=== PATIENT | female | born 1985 | race Hispanic/Latino ===

== ENCOUNTER 2023-02-16 10:31 | Emergency (ER) | payer BC ==
--- OUTSIDE RECORDS SUMMARY | 2023-02-16 10:33 | XMS REPORT | Continuity of Care Document ---
:1985 Author Organization [facility] t Address [address] [place] [address] [place] [id number] Care Team Providers Name Role Phone Donna Rico Attending Clinician Unavailable Kamryn_Reji Attending Clinician Unavailable Vanesa Dumont Attending Clinician Unavailable Donna Rico Admitting Clinician Unavailable L_Penisaura Admitting Clinician Unavailable Vanesa Dumont Admitting Clinician Unavailable Physician, No Primary or Family Admitting Clinician Unavaila ble Payers Payer Name Policy Type Policy Number Effective Date Expiration Date S varun [place] [id number] 2021 00:00:00 [place] ([place] Problems This patient has no known problems. Allergies, Adverse Reactions, Alerts Allergy Allergy Status Severity Reaction(s) Onset Inactive Treating Comm ents Source Name Type Date Date Clinician No Known DA Active U [facility] All[facility] 7 [facility]: [facility] 00 l [facility] No Known DA Active U 2016-03 [facility] Drug -15 [facility] 00:[facility]: [facility]ospita nces 00 [facility] No Known DA Active U NONE 2016-03 [facility] Drug 04-13 [facility] 00:00: Hospita nc 00 [facility] Social History Smoking Status Start Date Stop Date Source Never Smoker [facility] Medications Ordered Filled Start Stop Current Ordering Indication Dosage Frequency Signature Comments Components Source Medication Medication Date Date Medication? Clinician (SIG) Name Name Zithromax Zithromax No Zithromax Portal Z-Romeo 250 Z-Romeo 250 Z-Romeo 250 Communi mg tablet mg tablet mg tablet ty TAKE 2 TAKE 2 TAKE 2 Hospita TABLETS TABLETS TABLETS l (500 MG) BY (500 MG) BY (500 MG) Clinics ORAL ROUTE ORAL ROUTE BY ORAL ONCE DAILY ONCE DAILY ROUTE ONCE FOR 1 DAY FOR 1 DAY DAILY FOR THEN 1 THEN 1 1 DAY THEN TABLET (250 TABLET (250 1 TABLET MG) BY ORAL MG) BY ORAL (250 MG) ROUTE ONCE ROUTE ONCE BY ORAL DAILY FOR 4 DAILY FOR 4 ROUTE ONCE DAYS DAYS DAILY FOR 4 DAYS Vital Signs Vital Name Observation Time Observation Value Comments Source BP Diastolic 2022-12-10 00:00:00 76 mm[Hg] [facility] s BP Systolic 2022-12-10 00:00:00 114 mm[Hg] [facility] s Body Weight 2022-12-10 00:00:00 2540.8 [oz_av] [facility] s BMI (Body Mass 2022-12-10 00:00:00 24.9 kg/m2 [facility] s Height 2022-12-10 00:00:00 67 [in_i] [facility] s Procedures This patient has no known procedures. Plan of Care Planned Activity Planned Date Details Comments Source Diagnostic Test 2022-12-10 rapid SARS CoV 2 Ag, [facility] Pending 00:00:00 QL IA, respiratory Hospital Clinics specimen [code = rapid SARS CoV 2 Ag, QL [place], respiratory specimen] Diagnostic Test 2022-12-10 rapid flu (A+B) [facility] Pending 00:00:00 [code = rapid flu [facility] linics (A+B)] Diagnostic Test 2022-12-10 rapid strep group A, [facility] Pending 00:00:00 throat [code = rapid [facility] strep group A, throat] Instructions [facility] [place] s Encounters Start End Encounter Admission Attending Care Care Encounter Source Date/Time Date/Time Type Type Clinicians Facility Department ID 2021-10-15 Inpatient EM [place], [facility]01 [id number] [facility] 13:50:00 Donna [id number] [facility] 2023-02-10 2023-02-10 Outpatient L_Reji [facility] [id number] Portal 00:00:00 00:00:00 1114 Commun i ty [facility]osp[facility] 2023-01-06 2023-01-06 Outpatient L_Reji [facility] [id number] Portal 00:00:00 00:00:00 1010 Commun i ty Hospita l [facility] 2022-12-10 2022-12-10 Outpatient L_Reji [facility] [id number] Portal 00:00:00 00:00:00 0913 Commun i ty Hospita l [facility] 2022-12-10 2022-12-10 Shelly [facility] [place] - Portal 13 Portal 00:00:00 00:00:00 Ciera Mendoza APRN, MSN, [facility]: [address], CLINIC [address], [place] [address] , Ph. 2021-10-25 2021-10-26 Inpatient HUA Dumont [facility]01 [id number] [facility] 09:59:00 11:50:00 Vanesa 37 [facility] 2021-10-25 2021-10-26 Inpatient HUA Dumont [facility]01 [id number] [facility] 09:59:00 11:50:00 Vanesa [id number] [facility] 2021-10-15 2021-10-17 Inpatient KATELIN [facility] [id number] [facility] 13:50:00 09:27:00 Donna 99 [facility] 2021-10-17 2021-10-17 Inpatient UHA Rico [facility] [id number] [facility] 08:00:00 08:00:00 Donna 94 [facility] Results Test Description Test Time Test Comments Results Result Comments Source SURGICAL 2021-10-29 16:39:00 Test Item Value Reference Range Interpretation Commsisi nts SURGICAL RUN (test DATE: 10/29/21 [facility] PAGE 1 RUN TIME: 1639 Specimen Inquiry RUN USER: INTERFACE code = REBECA [place]CA[place]) NT: JOSE WASHBURN LOC: NETTE U #: [id number] AGE/SX: 36/F ROOM: [facility] RE10/25/21[facility] DR: Tiana Dumont MD : 86 BED: A DIS: 10/26/21 STATUS: DIS Victoriano TLOC: SPEC #: [id number] RECD: STATUS: SOUT REQ #: [id number] HEMANTH: 10/25/21-1638 [facility] DR: Vanesa Dumont MD ENTERED: SP TYPE: SURGICAL OTHR DR: Donna Rico MD ORDERED: ANATOMIC SPEC/6, SPEC TRACK, [id number], [id number] COPIES TO: Donna Rico MD [address] [facility] [address] [place] [address] [phone] Vanesa Dumont MD [address] [place] [address] [email or web address] PROCEDURES: [id number] (10/28/21-827) [id number] (10/29/21- 1519) TISSUES: A. PELVIC ADHESIONS - LEFT PELV IC SIDE WALL B. UTEROSACRAL LIGAMENT - LEFT UTEROSACRAL C. CUL-DE-SAC, PERITONEUM - RIG HT POSTERIOR CULDESAC D. PELVIC ADHESIONS - RIGHT PELVIC SIDE WALL E. UTEROSACRAL LIGAMENT - RIGHT UTEROSACRAL F. UTERUS - UTERUS, CERVIX FINAL DIAGNOSIS A. PELVIS, LEFT PELVIC SIDEWALL, BIOPSY : - Benign fibroconnective tissue B. PELVIS, LEFT UTEROSACRAL BIOPSY: - Benign fibroconnective tis onelia C. PELVIS, RIGHT POSTERIOR CUL-DE-SAC, BIOPSY: - Benign fibroadipose tissue D. PELVI S, RIGHT PELVIC SIDEWALL, BIOPSY: - Benign fibroadipose tissue E. PELVIS, RIGHT UTEROSACRAL, B IOPSY: - Benign fibroconnective tissue with focal chronic inflammation and vascular co ngestion F. UTERUS, HYSTERECTOMY: - Cervix with chronic inflammation and focal reactive parakeratosis CONTINUED ON NEXT PAGE RUN DATE: 10/29/21 [facility] PAGE 2 RUN TIME: 1639 Specimen Inquiry RUN USER: INTERFACE SPEC #: [id number] PATIENT: JOSE WASHBURN #[id number] (Continued) ------ FINAL DIAGNOSIS (Cont inued) - Secretory endometrium with benign polypoid foci up to 2 mm in length; Negative for atyp ia, negative for malignancy - Myometrium with no pathologic alteration - Specimen weight 167 g GROSS DESCRIPTION Specimen received in formalin in 6 parts each labeled with patient na me, MRN and date ofbirth.A. Specimen is labeled left pelvic sidewall. It consists of a 3.2 x 1.7 x 0.2 cmirregular soft collazo-rey tissue portion. Entirely submitted in cassette A1.B. Specimen is l abeled left uterosacral. It consists of a 1.6 x 1.3 x 0.2 cm soft collazo-rey tissue portion. Ent irely submitted in cassette B1.C. Specimen is labeled right posterior cul-de-sac. It consists of i s a 1.1 x 0.7 x0.2 cm soft collazo-rey tissue portion. Entirely submitted in cassette C1.D. Specimen is labeled right pelvic sidewall. It consists of a 2.4 x 1.9 x 0.2 cm softtan- rey membr anous tissue portion. Entirely submitted in cassette D1.E. Specimen is labeled right uterosacral . It consists of a 1.7 x 1.3 x 0.1 cm softtan-rey membranous tissue portion. Entirely submitted in cassette E1.F. Specimen is labeled uterus, cervix. It consists of a hysterectomy specimen [facility] 167g. Uterus measures 9.5 cm in length from fundus to distal most portion of exocervix, 6 .4cm in maximum cornu to cornu width and 4.6 cm anteroposteriorly. Serosa is purple tansmooth. Cervix is 3.1 cm in length and 3.6 cm in greatest diameter. Os is slit-like and1.1 cm across. Alex vaginalis is purple collazo smooth. Cervical canal has a collazo rugatedappearance. Endometri al cavity is 5.1 cm in length and 2.9 cm in maximum width. Endometrium is collazo-pink poly poid appearing and 0.1-0.3 cm in thickness. Myometrium istan-pink and up to 2.3 cm in thickness. R epresentative sections are submitted as follows: F1-F2 anterior and posterior cervix F3-F4 anter ior endomyometrium F5-F6 posterior endomyometrium AJ Technical component performed at [facility] ,[id number] , [place] [address] Unless gross only, the diagnosis is based upon micr oscopic examination.Immunohistochemistry: This test was developed and its performance characterist icsdetermined by this laboratory. It has not been approved nor does it need approval by [facility]. Appropriate positive and negative controls are reviewed and judged to beacceptable. This [facility] is certified under the Clinical Laboratory ImprovementAmendments (CLIA-88) as qualified to pe rform high complexity clinical laboratory testing. CLINICAL INFORMATION 10/25/21 1633/181 8, ANEMIA, DYSPAREUNIA, MENOMETRORRHAGIA, DISMENORRHEA CONTINUED ON NEXT PAGE RUN DATE: 10/29/21 [facility] PAGE 3 RUN TIME: 1639 Specimen Inquiry RUN USER: INTERFACE SPEC #: [id number] PATIENT: JOSE WASHBURN ABEL #[id number] (Continued) ------ Signed SIGNATURE ON TAWANNA SmithWendiekvng 10/29/21 1639 END OF REPORT CBC W/AUTO [id number] 05:40:00 Test Item Value Reference Range Interpretation Comments WHITE BLOOD CELL (test code = WBC) 8.8 K/mm3 6.5-12.3 RED BLOOD CELL (test code = RBC) 4.06 M/mm3 3.51-4.69 N HEMOGLOBIN (test code = HGB) 9.1 g/dL 10.1-13.8 L HEMATOCRIT (test code = HCT) 30.5 % 32.5-41.8 L MEAN CELL VOLUME (test code = MCV) 75.1 fL 84.6-96.6 L MEAN CELL HGB (test code = MCH) 22.4 pg 27.3-33.9 L MEAN CELL HGB CONCETRATION (test 29.8 gm/dL 32.0-34.2 L code = MCHC) RED CELL DISTRIBUTION WIDTH (test 20.6 % 12.2-16.3 H code = RDW) PLATELET COUNT (test code = PLT) 197 K/mm3 134-363 N MEAN PLATELET VOLUME (test code = 11.3 fL 9.2-12.7 N MPV) NEUTROPHIL % (test code = NT%) 84.5 % 57.9-77.3 H LYMPHOCYTE % (test code = LY%) 8.3 % 14.5-29.7 L MONOCYTE % (test code = MO%) 6.1 % 3.6-10.2 N EOSINOPHIL % (test code = EO%) 0.1 % 0.0-3.0 N BASOPHIL % (test code = BA%) 0.5 % 0.1-0.9 N NEUTROPHIL # (test code = NT#) 7.4 K/mm3 LYMPHOCYTE # (test code = LY#) 0.7 K/mm3 MONOCYTE # (test code = MO#) 0.5 K/mm3 EOSINOPHIL # (test code = EO#) 0.01 K/mm3 BASOPHIL # (test code = BA#) 0.0 K/mm3 RBC MORPHOLOGY REQUIRED (test code ABNORMAL NORMAL ANISO 1+ = RBCM) PLATELET MORPHOLOGY REQUIRED (test NORMAL NORMAL code = PLTMR) AG HEPATITIS B [id number] 12:53:00 Test Item Value Reference Range Interpretation Comments AG HEPATITIS B SURFACE (test code NONREACTIVE NONREACTIVE = HBSAG) AB HEPATITIS C [id number] 12:53:00 Test Item Value Reference Range Interpretation Comments AB HEPATITIS C (test code = NONREACTIVE NONREACTIVE HCVAB) SIGNAL TO CUTOFF (test code = 0.04 <0.80 N CUTOFF) AB HIV 1 12:53:00 Test Item Value Reference Range Interpretation Comments AB HIV 1 2 (test NONREACTIVE NONREACTIVE [facility] code = [id number]) 4th Gen HIV Ag/Ab Combo Screen HCG SERUM [id number] 12:07:00 Test Item Value Reference Range Interpretation Comments HCG SERUM QUAL (test code = HCGQL) NEGATIVE URINALYSIS [id number] 11:37:00 Test Item Value Reference Range Interpretation Comments UA COLOR (test code = COLU) COLORLESS YELLOW UA APPEARANCE (test code = CLEAR CLEAR APPU) UA GLUCOSE DIPSTICK (test code NEGATIVE NEG = DGLUU) UA BILIRUBIN DIPSTICK (test NEGATIVE NEG code = BILU) UA KETONE DIPSTICK (test code NEGATIVE NEG = KETU) UA SPECIFIC GRAVITY (test code 1.002 1.001-1.035 N = SGU) UA BLOOD DIPSTICK (test code = NEG NEG YARA) UA PH DIPSTICK (test code = 6.0 5-9 LUIS A) UA PROTEIN DIPSTICK (test code NEGATIVE NEG = PROU) UA UROBILINIOGEN DIPSTICK NEGATIVE mg/dL NEG (test code = URO) UA NITRITE DIPSTICK (test code NEG NEG = NOEMI) UA LEUKOCYTE ESTERASE DIPSTICK NEG NEG (test code = LEUU) UA WBC (test code = WBCU) 0-2 #/hpf NONE SEEN UA RBC (test code = RBCU) 0-2 #/hpf NONE SEEN UA EPITHELIAL CELLS (test code RARE #/HPF RARE-FEW = EPIU) UA BACTERIA (test code = BACU) RARE /HPF RARE-FEW URINE SAMPLE: CLEAN CATCHCOVID 19 Asymptomatic IH [id number] 11:33:00 Test Item Value Reference Range Interpretation Comments COVID 19 NEGATIVE NEGATIVE This test has b een Asymptomatic IH AG authorize d only for the (test code = detection ofpro teins from COVNONPUIAG) SARS-CoV-2, not for any other viruses orpathogens. Ne gative results should be treated as presumptive andconfirmed wi th a molecular assay , if necessary for patientmanageme nt. Negative result s do not rule out COVID- 19 andshould not b e used as the sole basis for treatment orpat ient management deci sions, including infec tion controldecision s. Negative result s should be considered i n thecontext of a patient's recent exposure s, history and thepresence of clinical signs and symptoms consis tent withCOVID-19. T his test has not been FD A cleared or approved; th e test hasbeen authori zed by FDA under an Emerge ncy Use Authorization(E UA) for use by laborato yvette certified under the CLIA thatmeet the re quirements to perform mode rate, high or waivedcomple xity tests. This anjali t is authorized for use at thePoint of Car e (POC), i.e., in patien t care settingsoperati ng under a CLIA Certificat e of Waiver, Certifi radha ofCompliance, o r Certificate of Accreditation. This test is only authori zed for the duration of thedeclaration that circumstances e xist justifying theauthorizatio n of emergency use o f in vitro diagnostic test sfor detection and/o r diagnosis of CO VID-19 under Xxsavym67 4(b)(1) of the Act, 21 U.S .C. 360bbb-3(b)(1), unless theauthorizatio n is terminated or r evoked sooner. CBC W/AUTO [id number] 11:22:00 Test Item Value Reference Range Interpretation Comments WHITE BLOOD CELL (test code = WBC) 6.1 K/mm3 6.5-12.3 L RED BLOOD CELL (test code = RBC) 4.56 M/mm3 3.51-4.69 N HEMOGLOBIN (test code = HGB) 10.3 g/dL 10.1-13.8 N HEMATOCRIT (test code = HCT) 33.7 % 32.5-41.8 N MEAN CELL VOLUME (test code = MCV) 73.9 fL 84.6-96.6 L MEAN CELL HGB (test code = MCH) 22.6 pg 27.3-33.9 L MEAN CELL HGB CONCETRATION (test 30.6 gm/dL 32.0-34.2 L code = MCHC) RED CELL DISTRIBUTION WIDTH (test 20.4 % 12.2-16.3 H code = RDW) PLATELET COUNT (test code = PLT) 209 K/mm3 134-363 N MEAN PLATELET VOLUME (test code = 11.3 fL 9.2-12.7 N MPV) NEUTROPHIL % (test code = NT%) 57.3 % 57.9-77.3 L LYMPHOCYTE % (test code = LY%) 29.5 % 14.5-29.7 N MONOCYTE % (test code = MO%) 7.3 % 3.6-10.2 N EOSINOPHIL % (test code = EO%) 4.7 % 0.0-3.0 H BASOPHIL % (test code = BA%) 0.7 % 0.1-0.9 N NEUTROPHIL # (test code = NT#) 3.5 K/mm3 LYMPHOCYTE # (test code = LY#) 1.8 K/mm3 MONOCYTE # (test code = MO#) 0.5 K/mm3 EOSINOPHIL # (test code = EO#) 0.29 K/mm3 BASOPHIL # (test code = BA#) 0.0 K/mm3 RBC MORPHOLOGY REQUIRED (test code NORMAL NORMAL = RBCM) PLATELET MORPHOLOGY REQUIRED (test NORMAL NORMAL code = PLTMR) CBC W/AUTO [id number] 13:50:00 Test Item Value Reference Range Interpretation Comments WHITE BLOOD CELL (test code = WBC) 4.9 K/mm3 6.5-12.3 L RED BLOOD CELL (test code = RBC) 4.06 M/mm3 3.51-4.69 N HEMOGLOBIN (test code = HGB) 8.9 g/dL 10.1-13.8 L HEMATOCRIT (test code = HCT) 29.7 % 32.5-41.8 L MEAN CELL VOLUME (test code = MCV) 73.2 fL 84.6-96.6 L MEAN CELL HGB (test code = MCH) 21.9 pg 27.3-33.9 L MEAN CELL HGB CONCETRATION (test 30.0 gm/dL 32.0-34.2 L code = MCHC) RED CELL DISTRIBUTION WIDTH (test 16.6 % 12.2-16.3 H code = RDW) PLATELET COUNT (test code = PLT) 251 K/mm3 134-363 N MEAN PLATELET VOLUME (test code = 10.7 fL 9.2-12.7 N MPV) NEUTROPHIL % (test code = NT%) 58.0 % 57.9-77.3 N LYMPHOCYTE % (test code = LY%) 29.0 % 14.5-29.7 N MONOCYTE % (test code = MO%) 6.3 % 3.6-10.2 N EOSINOPHIL % (test code = EO%) 5.9 % 0.0-3.0 H BASOPHIL % (test code = BA%) 0.6 % 0.1-0.9 N NEUTROPHIL # (test code = NT#) 2.8 K/mm3 LYMPHOCYTE # (test code = LY#) 1.4 K/mm3 MONOCYTE # (test code = MO#) 0.3 K/mm3 EOSINOPHIL # (test code = EO#) 0.29 K/mm3 BASOPHIL # (test code = BA#) 0.0 K/mm3 RBC MORPHOLOGY REQUIRED (test code NORMAL NORMAL = RBCM) PLATELET MORPHOLOGY REQUIRED (test NORMAL NORMAL code = PLTMR) CBC W/AUTO [id number] 01:51:00 Test Item Value Reference Range Interpretation Comments WHITE BLOOD CELL (test code = WBC) 5.3 K/mm3 6.5-12.3 L RED BLOOD CELL (test code = RBC) 3.79 M/mm3 3.51-4.69 N HEMOGLOBIN (test code = HGB) 8.3 g/dL 10.1-13.8 L HEMATOCRIT (test code = HCT) 27.7 % 32.5-41.8 L MEAN CELL VOLUME (test code = MCV) 73.1 fL 84.6-96.6 L MEAN CELL HGB (test code = MCH) 21.9 pg 27.3-33.9 L MEAN CELL HGB CONCETRATION (test 30.0 gm/dL 32.0-34.2 L code = MCHC) RED CELL DISTRIBUTION WIDTH (test 16.6 % 12.2-16.3 H code = RDW) PLATELET COUNT (test code = PLT) 236 K/mm3 134-363 N MEAN PLATELET VOLUME (test code = 10.8 fL 9.2-12.7 N MPV) NEUTROPHIL % (test code = NT%) 50.3 % 57.9-77.3 L LYMPHOCYTE % (test code = LY%) 36.5 % 14.5-29.7 H MONOCYTE % (test code = MO%) 6.4 % 3.6-10.2 N EOSINOPHIL % (test code = EO%) 6.2 % 0.0-3.0 H BASOPHIL % (test code = BA%) 0.4 % 0.1-0.9 N NEUTROPHIL # (test code = NT#) 2.7 K/mm3 LYMPHOCYTE # (test code = LY#) 2.0 K/mm3 MONOCYTE # (test code = MO#) 0.3 K/mm3 EOSINOPHIL # (test code = EO#) 0.33 K/mm3 BASOPHIL # (test code = BA#) 0.0 K/mm3 RBC MORPHOLOGY REQUIRED (test code NORMAL NORMAL = RBCM) PLATELET MORPHOLOGY REQUIRED (test NORMAL NORMAL code = PLTMR) COVID 19 Asymptomatic IH [id number] 16:20:00 Test Item Value Reference Range Interpretation Comments COVID 19 NEGATIVE NEGATIVE This test has b een Asymptomatic IH AG authorize d only for the (test code = detection ofpro teins from COVNONPUIAG) SARS-CoV-2, not for any other viruses orpathogens. Ne gative results should be treated as presumptive andconfirmed wi th a molecular assay , if necessary for patientmanageme nt. Negative result s do not rule out COVID- 19 andshould not b e used as the sole basis for treatment orpat ient management deci sions, including infec tion controldecision s. Negative result s should be considered i n thecontext of a patient's recent exposure s, history and thepresence of clinical signs and symptoms consis tent withCOVID-19. T his test has not been FD A cleared or approved; th e test hasbeen authori sina by FDA under an Emerge ncy Use Authorization(E UA) for use by laborato yvette certified under the CLIA thatmeet the re quirements to perform mode rate, high or waivedcomple xity tests. This anjali t is authorized for use at thePoint of Car e (POC), i.e., in patien t care settingsoperati ng under a CLIA Certificat e of Waiver, Certifi radha ofCompliance, o r Certificate of Accreditation. This test is only authori sina for the duration of thedeclaration that circumstances e xist justifying theauthorizatio n of emergency use o f in vitro diagnostic test sfor detection and/o r diagnosis of CO VID-19 under Jkvrizh81 4(b)(1) of the Act, 21 U.S .C. 360bbb-3(b)(1), unless theauthorizatio n is terminated or r evoked sooner. BASIC METABOLIC [id number] 16:02:00 Test Item Value Reference Range Interpretation Comments SODIUM (test code = NA) 137 mEq/L 135-145 N POTASSIUM (test code = K) 4.0 mEq/L 3.5-5.0 N CHLORIDE (test code = CL) 103 mEq/L 100-115 N CARBON DIOXIDE (test code = CO2) 27 mEq/L 22-31 N ANION GAP (test code = GAP) 10.60 10-20 N GLUCOSE (test code = GLU) 96 mg/dL 65-110 N BLOOD UREA NITROGEN (test code = 12 mg/dL 7-18 N BUN) GLOMERULAR FILTRATION RATE (test 71 ml/min >60 N code = GFR) CREATININE (test code = CREAT) 0.9 mg/dL 0.5-1.0 N CALCIUM (test code = CA) 8.9 mg/dL 8.4-10.2 N LIVER [id number] 16:02:00 Test Item Value Reference Range Interpretation Comments TOTAL PROTEIN (test code = PROT) 6.8 gm/dL 6.3-8.2 N ALBUMIN (test code = ALB) 4.0 gm/dL 3.4-4.8 N BILIRUBIN TOTAL (test code = BILT) 0.3 mg/dL 0.2-1.0 N BILIRUBIN DIRECT (test code = 0.1 mg/dL <0.2 N BILD) SGOT/AST (test code = AST) 13 units/L 15-37 L SGPT/ALT (test code = ALT) 11 units/L 12-78 L ALKALINE PHOSPHATASE TOTAL (test 56 units/L 46-116 N code = ALKP) CBC W/AUTO [id number] 15:41:00 Test Item Value Reference Range Interpretation Comments WHITE BLOOD CELL (test code = WBC) 5.5 K/mm3 6.5-12.3 L RED BLOOD CELL (test code = RBC) 3.81 M/mm3 3.51-4.69 N HEMOGLOBIN (test code = HGB) 8.0 g/dL 10.1-13.8 L HEMATOCRIT (test code = HCT) 27.5 % 32.5-41.8 L MEAN CELL VOLUME (test code = MCV) 72.2 fL 84.6-96.6 L MEAN CELL HGB (test code = MCH) 21.0 pg 27.3-33.9 L MEAN CELL HGB CONCETRATION (test 29.1 gm/dL 32.0-34.2 L code = MCHC) RED CELL DISTRIBUTION WIDTH (test 16.3 % 12.2-16.3 N code = RDW) PLATELET COUNT (test code = PLT) 260 K/mm3 134-363 N MEAN PLATELET VOLUME (test code = 11.0 fL 9.2-12.7 N MPV) NEUTROPHIL % (test code = NT%) 59.3 % 57.9-77.3 N LYMPHOCYTE % (test code = LY%) 26.7 % 14.5-29.7 N MONOCYTE % (test code = MO%) 7.0 % 3.6-10.2 N EOSINOPHIL % (test code = EO%) 6.2 % 0.0-3.0 H BASOPHIL % (test code = BA%) 0.4 % 0.1-0.9 N NEUTROPHIL # (test code = NT#) 3.2 K/mm3 LYMPHOCYTE # (test code = LY#) 1.5 K/mm3 MONOCYTE # (test code = MO#) 0.4 K/mm3 EOSINOPHIL # (test code = EO#) 0.34 K/mm3 BASOPHIL # (test code = BA#) 0.0 K/mm3 RBC MORPHOLOGY REQUIRED (test code NORMAL NORMAL = RBCM) PLATELET MORPHOLOGY REQUIRED (test NORMAL NORMAL code = PLTMR) UA RFLX MICR CULT IF [id number] 14:33:00 Test Item Value Reference Range Interpretation Comments UA COLOR (test code = COLU) YELLOW YELLOW UA APPEARANCE (test code = CLEAR CLEAR APPU) UA GLUCOSE DIPSTICK (test code NEGATIVE NEG = DGLUU) UA BILIRUBIN DIPSTICK (test NEGATIVE NEG code = BILU) UA KETONE DIPSTICK (test code NEGATIVE NEG = KETU) UA SPECIFIC GRAVITY (test code 1.009 1.001-1.035 N = SGU) UA BLOOD DIPSTICK (test code = NEG NEG YARA) UA PH DIPSTICK (test code = 7.0 5-9 LUIS A) UA PROTEIN DIPSTICK (test code NEGATIVE NEG = PROU) UA UROBILINIOGEN DIPSTICK NEGATIVE mg/dL NEG (test code = URO) UA NITRITE DIPSTICK (test code NEG NEG = NOEMI) UA LEUKOCYTE ESTERASE DIPSTICK NEG NEG (test code = LEUU) UA WBC (test code = WBCU) 0-2 #/hpf NONE SEEN UA RBC (test code = RBCU) 0-2 #/hpf NONE SEEN UA EPITHELIAL CELLS (test code RARE #/HPF RARE-FEW = EPIU) UA BACTERIA (test code = BACU) RARE /HPF RARE-FEW UA MUCUS (test code = MUCU) RARE NONE SEEN Indication for culture: Suprapubic PainSpecimen Description: CLEAN CATCH- DUP AB/PEL/SC/[id number] 00:00:00 [facility] : 1985 Sex: F Patient Name: JOSE WASHBURN Unit No: [id number] EXAMS: CPT CODE: [id number] DUP AB/PEL/SC/LTD [id number] PROCEDURE INFORMATION: Exam: US Pelvis Complete (Transabdominal), Pelvis (Transvaginal), and US Duplex Artery or Vein (Ovaries) Limited Exam date and time: 10/15/2021 2:07 PM Age: 36 years old Clinical indication: Abdominal or pelvic symptoms: Aub; Menstruation abnormalities; Excessive menstruation; With regular cycle; Prior surgery; Surgery date: 6+ months; Surgery type: C/s x2; Additional info: Pelvic pain TECHNIQUE: Imaging protocol: Real-time transabdominal and transvaginal pelvic ultrasound (complete) with image documentation. Transvaginal imaging was used for better evaluation of the endometrium, adnexa, and/or cervix. Real-time duplex ultrasound scan of the arterial or venous flow of the ovaries with B-mode, color Doppler flow and spectral waveform analysis. Complete Pelvis, Limited Duplex. COMPARISON: OT US TRANSVAGINAL W/PELVIS 02/13/2017 12:38 PM FINDINGS: Uterus: Heterogeneous uterus measuring 10.9 x 5.6 x 6.9 cm. Endometrial stripe is normal and measures 6 mm in thickness. Right ovary/adnexa: The right ovary measures 4.2 x 3.6 x 3.1 cm. There is 2.5 x 2.2 x 1.9 cm anechoic simple follicular cyst in the right ovary . Normal duplex of the ovary. Normal Doppler waveforms and color flow. Left ovary/adnexa: The left ovary measures 2.4 x 1.4 x 1.5 cm on transabdominal examination. Normal duplex of the ovary. Normal Doppler waveforms and color flow. Intraperitoneal space: No intraperitoneal fluid. Urinary bladder: Visualized bladder is unremarkable. IMPRESSION: 1. Heterogeneous bulky uterus. 2. 2.5 x 2.2 x 1.9 cm follicular cyst in the right ovary.No follow-up is needed. (Reference: Silvia, 2019) References: Silvia Felder, et al. Simple Adnexal Cysts: SRU Consensus Conference Update on Follow-up and Reporting. Radiology. 2019;293(2):359-371. 3. No ovarian torsion. at 1531 Reported and signed by: Roz Rogers MD [facility] NAME: JOSE WASHBURN Radiology Department PHYS: . - Rosemary Mccrary [address] : 1985 AGE: 36 SEX: F [place] [address] LOC: DianaERS PHONE #: [phone] EXAM DATE: 10/15/2021 STATUS: REG ER FAX #: [phone] RAD NO: Page 1 Signed Report (CONTINUED) Patient Name: JOSE WASHBURN Unit No: [id number] EXAMS: CPT CODE: [id number] DUP AB/PEL/SC/LTD 95819 (Continued) CC: Rosemary Mccrary MD Technologist: Meghan Perdomo, RDMSProbe: Trnscrbd D/ (153) GCD.CPS Orig Print D/T: S: 10/15/2021 (153) [facility] [place] [facility] NAME: JOSE WASHBURN Radiology Department PHYS: . Rosemary Mccrary [address] : 1985 AGE: 36 SEX: F [place] [address] LOC: DianaERS PHONE #: [phone] EXAM DATE: 10/15/2021 STATUS: REG ER FAX #: [phone] RAD NO: Page 2 Signed Report Patient Name: JOSE WASHBURN Unit No: [id number] EXAMS: CPT CODE: [id number] DUP AB/PEL/SC/LTD 63727(Continued) [facility] NAME: JOSE WASHBURN Radiology Department PHYS: NICOLETTEBERNADETTE.Hugo Rosemary Mccrary [place] [address] : 1985 AGE: 36 SEX: F [place], [place] [address] LOC: CAROLE PHONE #: [phone] EXAM DATE: 10/15/2021 STATUS: REG ER FAX #: [phone] NO: Page 3 Signed Report - US TRANSVAGINAL [id number] 00:00:00 [facility] 1985 Sex: F Patient Name: JOSE WASHBURN Unit No: [id number] EXAMS: CPT CODE: [id number] US TRANSVAGINAL W/PELVIS 13682 PROCEDURE INFORMATION: Exam: US Pelvis Complete (Transabdominal), Pelvis (Transvaginal), and US Duplex Artery or Vein (Ovaries) Limited Exam date and time: 10/15/2021 2:07 PM Age: 36 years old Clinical indication: Abdominal or pelvic symptoms: Aub; Menstruation abnormalities; Excessive menstruation; With regular cycle; Prior surgery; Surgery date: 6+ months; Surgery type: C/s x2; Additional info: Pelvic pain TECHNIQUE: Imaging protocol: Real-time transabdominal and transvaginal pelvic ultrasound (complete) with image documentation. Transvaginal imaging was used for better evaluation of the endometrium, adnexa, and/or cervix. Real-time duplex ultrasound scan of the arterial or venous flow of the ovaries with B-mode, color Doppler flow and spectral waveform analysis. Complete Pelvis, Limited Duplex. COMPARISON: OT US TRANSVAGINAL W/PELVIS 02/13/2017 12:38 PM FINDINGS: Uterus: Heterogeneousuterus measuring 10.9 x 5.6 x 6.9 cm. Endometrial stripe is normal and measures 6 mm in thickness. Right ovary/adnexa: The right ovary measures 4.2 x 3.6 x 3.1 cm. There is 2.5 x 2.2 x 1.9 cm anechoicsimple follicular cyst in the right ovary . Normal duplex of the ovary. Normal Doppler waveforms andcolor flow. Left ovary/adnexa: The left ovary measures 2.4 x 1.4 x 1.5 cm on transabdominal examination. Normal duplex of the ovary. Normal Doppler waveforms and color flow. Intraperitoneal space: No intraperitoneal fluid. Urinary bladder: Visualized bladder is unremarkable. IMPRESSION: 1. Heterogeneous bulky uterus. 2. 2.5 x 2.2 x 1.9 cm follicular cyst in the right ovary.No follow-up is needed. (Reference: Silvia, 2019) References: Silvia Felder, et al. Simple Adnexal Cysts: SRU Consensus Conference Update on Follow-up and Reporting. Radiology. 2019;293(2):359-371. 3. No ovarian torsion. at 1531 Reported and signed by: Roz Rogers MD [facility] NAME: WASHBURNJOSEYOSHI ROMAN Radiology Department PHYS: TYREE. - Rosemary Mccrary [address] : 1985 AGE: 36 SEX: F [place], [place] [address] LOC: CAROLE PHONE #: [phone] EXAM DATE: 10/15/2021 STATUS: REG ER FAX #: [phone] RAD NO: Page 1 Signed Report (CONTINUED) Patient Name: JOSE WASHBURN Unit No: [id number] EXAMS: CPT CODE: [id number] US TRANSVAGINAL W/PELVIS 90318 (Continued) CC: Rosemary Mccrary MD Technologist: Meghan Perdomo, RDMS Probe: [id number] Trnscrbd D/ (1531) GCD.CPS Orig Print D/T: S: 10/15/2021 (1531) [facility] NAME: JOSE WASHBURN Radiology Department PHYS: PETCA. - Rosemary Mccrary [address] : 1985 AGE: 36 SEX: F [place], [place] [address] LOC: [place].ERS PHONE #: [phone] EXAM DATE: 10/15/2021 STATUS: REG ER FAX #: [phone] RADNO: Page 2 Signed Report Patient Name: JOSE WASHBURN Unit No: [id number] EXAMS: CPT CODE: [id number] US TRANSVAGINAL W/PELVIS 88176 (Continued) [facility] NAME: JOSE WASHBURN ABEL Radiology Department PHYS: PETCA. - Rosemary Mccrary [address] : 1985 AGE: 36 SEX: F [place], [place] [address] LOC: F.ERS PHONE #: [phone] EXAM DATE: 10/15/2021 STATUS: REG ER FAX #: [phone] RAD NO: Page 3 Signed Report- US PELVIS [id number] 00:00:00 [facility] : 1985 Sex: F Patient Name: JOSE WASHBURN Unit No: [id number] EXAMS: CPT CODE: [id number] US PELVIS COMPLETE 39632 PROCEDURE INFORMATION: Exam: US Pelvis Complete (Transabdominal), Pelvis (Transvaginal), and US Duplex Artery or Vein (Ovaries) Limited Exam date and time: 10/15/2021 2:07 PM Age: 36 years old Clinical indication: Abdominal or pelvic symptoms: Aub; Menstruation abnormalities; Excessive menstruation; With regular cycle; Prior surgery; Surgery date: 6+ months; Surgery type: C/s x2; Additional info: Pelvic pain TECHNIQUE: Imaging protocol: Real-time transabdominal and transvaginal pelvic ultrasound (complete) with image documentation. Transvaginal imaging was used for better evaluation of the endometrium, adnexa, and/or cervix. Real-time duplex ultrasound scan of the arterial or venous flow of the ovaries with B-mode, color Doppler flow and spectral waveform analysis. Complete Pelvis, Limited Duplex. COMPARISON: OT US TRANSVAGINAL W/PELVIS 02/13/2017 12:38 PM FINDINGS: Uterus: Heterogeneous uterus measuring 10.9 x 5.6 x 6.9 cm. Endometrial stripe is normal and measures 6 mm in thickness. Right ovary/adnexa: The right ovary measures 4.2 x 3.6 x 3.1 cm. There is 2.5 x 2.2 x 1.9 cm anechoic simplefollicular cyst in the right ovary . Normal duplex of the ovary. Normal Doppler waveforms and color flow. Left ovary/adnexa: The left ovary measures 2.4 x 1.4 x 1.5 cm on transabdominal examination. Normal duplex of the ovary. Normal Doppler waveforms and color flow. Intraperitoneal space: No intraperitoneal fluid. Urinary bladder: Visualized bladder is unremarkable. IMPRESSION: 1. Heterogeneous bulky uterus. 2. 2.5 x 2.2 x 1.9 cm follicular cyst in the right ovary.No follow-up is needed. (Reference: Silvia, 2019) References: Silvia Felder, et al. Simple Adnexal Cysts: SRU Consensus Conference Update onFollow-up and Reporting. Radiology. 2019;293(2):359-371. 3. No ovarian torsion. at 1531 Reported and signed by: Roz Rogers MD [facility] NAME: JOSE WASHBURN Radiology Department PHYS: PETCA.01 - DemetraRosemary serrano [address] : 1985 AGE: 36 SEX: F [place] [address] LOC: DianaERS PHONE #: [phone] EXAM DATE: 10/15/2021 STATUS: REG ER FAX #: [phone] RAD NO: Page 1 Signed Report (CONTINUED) Patient Name: JOSE WASHBURN Unit No: [id number] EXAMS: CPT CODE: [id number] PELVIS COMPLETE 00162 (Continued) CC: Rosemary Mccrary MD Technologist: Meghan Perdomo RDMS Probe: Trnscrbd D/ (1531) GCD.CPS Orig Print D/T: S: 10/15/2021 (1531) [facility] [place] [facility] NAME: JOSE WASHBURN Radiology Department PHYS: PETCA.01 - DemetraRosemary serrano [address] : 1985 AGE: 36 SEX: F [place] [address] LOC: DianaERS PHONE #: [phone] EXAM DATE: 10/15/2021 STATUS: REG ER FAX #: [phone] RAD NO: Page 2 Signed ReportPatient Name: JOSE WASHBURN Unit No: [id number] EXAMS: CPT CODE: [id number] US PELVIS COMPLETE 41950 (Continued) [facility] [place] [facility] NAME: JOSE WASHBURN Radiology Department PHYS: PETCA.01 - Demetra,Rosemary D [address] : 1985 AGE: 36 SEX: F [place] [address] LOC: DianaERS PHONE #: [phone] EXAM DATE: 10/15/2021 STATUS: REG ER FAX #: [phone] RAD NO: Page 3 Signed ReportFALLOPIAN TUBE,[id number] 16:30:00 RUN DATE: 01/17/19 [facility] PAGE 1 RUN TIME: 1710 Specimen Inquiry RUN USER: INTERFACE -PATIENT: JOSE WASHBURN ABEL LOC: LOPEZ U #: [id number] AGE/SX: 33/F ROOM: [facility] RE01/13/19REG DR: Donna Rico MD : [birth year] BED: A DIS: 01/16/19 STATUS: DIS IN TLOC: SPEC #: [id number] RECD: 01/14/19 STATUS: FADUMO BIRCH #: [id number] HEMANTH: 01/14/19- SUBM DR: Donna Rico MD ENTERED: 01/14/19 SP TYPE: FALLST JERONIMO DR: Marguerite Nicole MD ORDERED: LEVEL II SURGIC/2 CODES: A47192 - FALLOPIAN TUBE COPIES TO: Marguerite Nicole MD [address] [facility] [facility] [place] [address] Jwqcsy,Jonna C MD [address] [facility] [place] [address] PROCEDURES: LEVEL II SURGIC (Incomplete) TISSUES: FALLOPIAN TUBE, NOS - BILATERAL FALLOPIAN TUBES CLINICAL HISTORY 33 year old, IUP @ 38.6 weeks, , repeat section (kr) FINAL DIAGNOSIS Right fallopian tube, sterilization salpingectomy: - completely transected unremarkable fallopian tube Left fallopian tube, sterilization salpingectomy: - completely transected fallopian tube with benign paratubal cyst CPT code(s): 66615 x2 [facility] 01/17/19 GROSS DESCRIPTION ANATOMIC SOURCE OF TISSUE (per Requisition): Bilateral fall opian tubes Each specimen is labeled with the patient's name and medical record number. CONTINUED ON NEXT PAGE RUN DATE: 01/17/19 [facility] PAGE 2 RUN TIME: 1710 Specimen Inquiry RUN USER: INTERFACE SPEC #: [id number] PATIENT: JOSE WASHBURN #[id number] (Continued) GROSS DESCRIPTION (Continued) Specimen #1 is designated "right" and consists of a segment of 5 x 0.7 x 0.7 cm fallopian tube with fimbriaand paratubal yellow tissue measuring up to 0.7 cm. The entire fimbria and one cross-section of fallo pian tube with the cyst are submitted and labeled A1. Specimen #2 is designated "left" and consists of a segment of 6 x 0.6 x 0.5 cm fallopian tube with fimbria and a parafimbrial cyst attached measuring up to 0.7 cm. The entire fimbria with the cyst and one cross-section of fallopian tube are submitted and labeled B1. pebbles 01/14/19 @ 0907 Signed Brenna Ralph MD 01/17/19 1630 END OF REPORT CBC W/AUTO [id number] 07:56:00 Test Item Value Reference Range Interpretation Comments WHITE BLOOD CELL (test code = WBC) 7.6 K/mm3 6.6-12.1 N RED BLOOD CELL (test code = RBC) 3.06 M/mm3 3.45-5.01 L HEMOGLOBIN (test code = HGB) 8.9 g/dL 10.7-13.9 L HEMATOCRIT (test code = HCT) 27.6 % 32.1-42.1 L MEAN CELL VOLUME (test code = MCV) 90 fL 84.1-94.8 N MEAN CELL HGB (test code = MCH) 29.1 pg 27-35 N MEAN CELL HGB CONCETRATION (test 32.2 gm/dL 32.2-34.1 N code = MCHC) RED CELL DISTRIBUTION WIDTH (test 14.4 % 12.4-16.5 N code = RDW) PLATELET COUNT (test code = PLT) 139 K/mm3 133-385 N IMMATURE PLATELET FRACTION (test 0.0 % 0.0-10.8 N code = IPF) MEAN PLATELET VOLUME (test code = 11.5 fl 9.1-12.7 N MPV) NEUTROPHIL % (test code = NT%) 60.1 % 56.5-79.4 N LYMPHOCYTE % (test code = LY%) 26.7 % 14.3-34.3 N MONOCYTE % (test code = MO%) 9.9 % 5.1-10.4 N EOSINOPHIL % (test code = EO%) 2.5 % 0.1-3.0 N BASOPHIL % (test code = BA%) 0.3 % 0.1-1.0 N NEUTROPHIL # (test code = NT#) 4.6 K/mm3 LYMPHOCYTE # (test code = LY#) 2.0 K/mm3 MONOCYTE # (test code = MO#) 0.8 K/mm3 EOSINOPHIL # (test code = EO#) 0.19 K/mm3 BASOPHIL # (test code = BA#) 0.0 K/mm3 RBC MORPHOLOGY REQUIRED (test code NORMAL NORMAL = RBCM) PLATELET MORPHOLOGY REQUIRED (test NORMAL NORMAL code = PLTMR) AG HEPATITIS B [id number] 18:54:00 Test Item Value Reference Range Interpretation Comments AG HEPATITIS B SURFACE (test code NONREACTIVE NONREACTIVE = HBSAG) Comments to Crate Icer: LDO BIS CONSENT FORM SIGNED FOR HIV TESTING? YAB HEPATITIS C [id number] 18:54:00 Test Item Value Reference Range Interpretation Comments AB HEPATITIS C (test code = NONREACTIVE NONREACTIVE HCVAB) SIGNAL TO CUTOFF (test code = 0.13 <0.80 N CUTOFF) Comments to Crate Icer: LDO BIS CONSENT FORM SIGNED FOR HIV TESTING? YAB [id number] 18:54:00 Test Item Value Reference Range Interpretation Comments AB TREPONEMA (test code = TREPAB) NONREACTIVE NONREACTIVE Comments to Crate Icer: LDO BIS CONSENT FORM SIGNED FOR HIV TESTING? YAB HIV 1 18:54:00 Test Item Value Reference Range Interpretation Comments AB HIV 1 2 (test NONREACTIVE NONREACTIVE [facility] code = AXG66EV) 4th Gen HIV Ag/Ab Combo Screen Comments to Crate Icer: LDO BIS CONSENT FORM SIGNED FOR HIV TESTING? YCBC W/AUTO [id number] 16:14:00 Test Item Value Reference Range Interpretation Comments WHITE BLOOD CELL (test code = WBC) 7.4 K/mm3 6.6-12.1 N RED BLOOD CELL (test code = RBC) 3.61 M/mm3 3.45-5.01 N HEMOGLOBIN (test code = HGB) 10.8 g/dL 10.7-13.9 N HEMATOCRIT (test code = HCT) 32.7 % 32.1-42.1 N MEAN CELL VOLUME (test code = MCV) 91 fL 84.1-94.8 N MEAN CELL HGB (test code = MCH) 29.9 pg 27-35 N MEAN CELL HGB CONCETRATION (test 33.0 gm/dL 32.2-34.1 N code = MCHC) RED CELL DISTRIBUTION WIDTH (test 14.2 % 12.4-16.5 N code = RDW) PLATELET COUNT (test code = PLT) 159 K/mm3 133-385 N IMMATURE PLATELET FRACTION (test 0.0 % 0.0-10.8 N code = IPF) MEAN PLATELET VOLUME (test code = 12.2 fl 9.1-12.7 N MPV) NEUTROPHIL % (test code = NT%) 68.8 % 56.5-79.4 N LYMPHOCYTE % (test code = LY%) 21.2 % 14.3-34.3 N MONOCYTE % (test code = MO%) 7.9 % 5.1-10.4 N EOSINOPHIL % (test code = EO%) 1.1 % 0.1-3.0 N BASOPHIL % (test code = BA%) 0.3 % 0.1-1.0 N NEUTROPHIL # (test code = NT#) 5.1 K/mm3 LYMPHOCYTE # (test code = LY#) 1.6 K/mm3 MONOCYTE # (test code = MO#) 0.6 K/mm3 EOSINOPHIL # (test code = EO#) 0.08 K/mm3 BASOPHIL # (test code = BA#) 0.0 K/mm3 RBC MORPHOLOGY REQUIRED (test code NORMAL NORMAL = RBCM) PLATELET MORPHOLOGY REQUIRED (test NORMAL NORMAL code = PLTMR) - US PREG UT [id number] 08:46:00 Patient Name: JOSE WASHBURN Unit No: [id number] EXAMS: CPT CODE: [id number] US PREG UT TRANSVAGINAL [address] [facility] [address], [place] [address] LIMITED OBSTETRICAL ULTRASOUND REPORT Pat. Name: JOSE WASHBURN Pat. No: [id number] Study Date: 11/30/2018 7:37am , Age: 02 1985, 33 Pregnancies: 3, Para 2 LMP: Unknown GA by 1st: 32w3d GA by US: 32w1d GA Selected: 32w3d (From First S) [place]: 01/22/2019 Referring MD: Leatha Shabazz Mud Analysis Well Logging Operator: Cyn Cortes RDMS CPT4: USPRUTTRVG Admitting MD: Leatha Shabazz Hist/Ind: PYELECTASIS SCAN 2 MEASUREMENTS AGE GROWTH EVALUATION Measurement GA Range Srce%for GA Ratios ----- ---- ------- BPD 7.9 cm 32w0d (50p3s-66a4e) Hadl BPD 44% FL/BPD 0.78 (0.71 - 0.87) HC 30.2 cm 33w0d (88l0u-57y9t) Hadl HC 60% FL/AC 0.22 (0.20 - 0.24) APD 8.8 cm APD HC/AC 1.07 (0.95 - 1.14) TAD 9.1 cm TAD CI 0.74 (0.70 - 0.86) AC 28.1 cm 32w1d (29w1d- 35w1d) Hadl AC 47% FL 6.2 cm 31w6d (31t1j-74w3e) Hadl FL 41% HL 5.7 cm 33w0d (3 9a4n-59r7v) Pa HL 61% GA for sonogram 32w1d (65i6u-24h2w) Weight Estimate: based on (BPD,HC,AC,FL) Hadlock Weight: 1933 gm (3659-2214) Hadlo : 4lbs, 4oz Normal: 1896 gm (0112-4058) Brenn Wt% 52% for 32.4 wks Cervical Length: 6.0 cm Heart Rate: 137 bpm Amniotic Fluid Index: 14.8cm (08.5-2 4.3) Q1: 3.3cm Q2: 3.0cm Q3: 3.5cm Q4: 4.9cm CLINICAL SUMMARY Type of Gestation: Langley Intrauterine in vertex present ation. size is appropriate for gestational age. growth: Consistent with normal growth motion and organs seen: heart motion seen body and limb movements seen RENAL PELVES ARE MILDLY PROMINENT. RT MEASURES 5MM AND LT MEASURES 6MM. Placental location: [facility] NAME: JOSE WASHBURN Radiology Department PHYS: Leatha Mota [address] : 1985 AGE: 33 SEX: F [place] [address] LOC: DianaRAD PHONE#: [phone] EXAM DATE: 11/30/2018 STATUS: PRE CLI FAX #: [phone] RAD NO: Page 1 Signed Report (CONTINUED) Patient Name: JOSE WASHBURN Unit No: [id number] EXAMS: CPT CODE: [id number] US PREG UT TRANSVAGINAL 44755 (Continued) Fundal Right lateral Placental maturity : Grade 2 There is no evidence of placenta previa. Amniotic fluid volume is normal. Uterus and adnexa: No significant abnormality is seen. Thank you for allowing us to participate in the care of this patient. Stepan Atkins M.D. Electronic Signature 11/30/2018 08:46am at 0846 Reported and signed by: Stepan Atkins MD CC: Technologist: Cyn Johnson RDMS Probe: [id number] Trnscrbd D/ (0846) [id number] Orig Print D/T: S: 12/02/2018(1422) [facility] NAME: WASHBURNJOSE Radiology Department PHYS: Leatha Mota [address] : 1985 AGE: 33 SEX: F [place] [address] LOC: DianaRAD PHONE #: [phone] EXAM DATE: 11/30/2018 STATUS: PRE CLI FAX #: [phone] RAD NO: Page 2 Signed Report Patient Name: JOSE WASHBURN Unit No: [id number] EXAMS: CPT CODE: [id number] US PREG UT TRANSVAGINAL 91085 (Continued) [facility] NAME: WASHBURNJOSE Radiology Department PHYS: Leatha Mota [address] : 1985 AGE: 33 SEX: [place], [place] [address] LOC: SON PHONE #: [phone] EXAM DATE: 11/30/2018 STATUS: PRE CLI FAX #: [phone] RAD NO: Page 3 Signed Report- US FLW [id number] 08:46:00 Patient Name: JOSE WASHBURN Unit No: [id number] EXAMS: CPT CODE: [id number] US FLWUP [address] [facility] [address] [place], [place] [address] LIMITED OBSTETRICAL ULTRASOUND REPORT Pat. Name: JOSE WASHBURN Pat. No: [id number] Study Date: 11/30/2018 7:37am , Age: 02 1985, 33 Pregnancies: 3, Para 2 LMP: Unknown GA by 1st: 32w3d GA by US: 32w1d GA Selected: 32w3d (From First S) [place]:01/22/2019 Referring MD: DONNA RICO Mud Analysis Well Logging Operator: Cyn Cortes RDMS CPT4: USPREGFU Admitting MD: DONNA RICO Hist/Ind: PYELECTASIS SCAN 2 MEASUREMENTS AGE GROWTH EVALUATION Measurement GA Range Srce %for GA Ratios ----- ---- ------- BPD 7.9 cm 32w0d (13t3m-39i5e) Hadl BPD 44% FL/BPD 0.78 (0.71 - 0.87) HC 30.2 cm 33w0d (83d5a-07s3z) Hadl HC 60% FL/AC 0.22 (0.20 - 0.24) APD 8.8 cm APD HC/AC 1.07 (0.95 - 1.14) TAD 9.1 cm TAD CI 0.74 (0.70 - 0.86) AC 28.1cm 32w1d (29w1d- 35w1d) Hadl AC 47% FL 6.2 cm 31w6d (27z3b-16g4g) Hadl FL 41% HL 5.7 cm 33w0d (63e3z-41q1o) Pa HL 61% GA for sonogram 32w1d (22s3q-77f7s) Weight Estimate: based on (BPD,HC,AC,FL)Hadlock Weight: 1933 gm (1864-3449) Hadlo : 4lbs, 4oz Normal: 1896 gm (0036-6363) Brenn Wt% 52% for 32.4 wks Cervical Length: 6.0 cm Heart Rate: 137 bpm Amniotic Fluid Index: 14.8cm (08.5- 24.3) Q1: 3.3cm Q2: 3.0cm Q3: 3.5cm Q4: 4.9cm CLINICAL SUMMARY Type of Gestation: Langley Intrauterine in vertex presentation. size is appropriate for gestational age. growth: Consistent with normal growth motion and organs seen: heart motion seen body and limb movements seen RENAL PELVES ARE MILDLY PROMINENT. RT MEASURES 5MM AND LT MEASURES 6MM. Placental location: [facility] NAME: JOSE WASHBURN Radiology Department PHYS: Leatha Mota PA [address] : 1985 AGE: 33 SEX: F [place] [address] LOC: DianaRAD PHONE #: [phone] EXAM DATE: 11/30/2018 STATUS: PRE CLI FAX #: [phone] RAD NO: Page 1 Signed Report (CO NTINUED) Patient Name: JOSE WASHBURN Unit No: [id number] EXAMS: CPT CODE: [id number] US FLW UP 90006 (Continued) Fundal Right lateral Placental maturity : Grade 2 There is no evidenceof placenta previa. Amniotic fluid volume is normal. Uterus and adnexa: No significant abnormality is seen. Thank you for allowing us to participate in the care of this patient. Stepan Atkins M.D. Electronic Signature 11/30/2018 08:46am Electronically Signed by Stepan Atkins MD on11/30/2018 at 0846 Reported and signed by: Stepan Atkins MD CC: Technologist: Cyn Cortes RDMS Probe: Trnscrbd D/ (0846) [email or web address] Orig Print D/T: S: 11/30/2018 (0846) [facility] NAME: JOSE WASHBURN Radiology Department PHYS: Leatha Mota [address] : 1985 AGE: 33 SEX: F [place] [address] LOC: DianaRAD PHONE #: [phone] EXAM DATE: 11/30/2018 STATUS: PRE CLI FAX #: [phone] RAD NO: Page 2 Signed Report Patient Name: JOSE WASHBURN Unit No: [id number] EXAMS: CPT CODE: [id number] US FLW UP [address] (Continued) [facility] NAME: WASHBURNJOSE Radiology Department PHYS: Leatha Mota [address] : 1985 AGE: 33 SEX: [place], [place] [address] LOC: SON PHONE #: [phone] EXAM DATE: 11/30/2018 STATUS: PRE CLI FAX #: [phone] RAD NO: Page 3 Signed Report- US PREG AFTER 2018-08-25 09:51:00 Patient Name: JOSE WASHBURN Unit No: [id number] EXAMS: CPT CODE: [id number] US PREG AFTER [address] [facility] [address] [place], [place] [address] OBSTETRICAL ULTRASOUND REPORT - Pat. Name: JOSE WASHBURN Pat. No: [id number] Study Date: 08/25/2018 8:09am , Age: 02 1985, 33 Pregnancies: 3, Para 2 LMP: Unknown GA by US: 18w3d GA Selected: 18w4d (From Known E) [place]: 01/22/2019 Referring MD:DONNA RICO Mud Analysis Well Log[employer] Operator: Rolanda Soler RDMS, T CPT4: QBTBAMB4S Admitting MD: DONNA RICO Hist/Ind: SCAN 1 ANATOMY SRINATH UREMENTS AGE GROWTH EVALUATION Measurement GA Range Srce %for GA Ratios ----- ---- ------- BPD 4.0 cm 18w0d (44o0t-95n0h) Hadl BPD 24% FL/BPD 0.73 HC 15.2 cm 18w1d (16w4d- 19w5d) Hadl HC 38% FL/AC 0.22 APD 4.2 cm APD HC/AC 1.15 (1.07 - 1.26) TAD 4.2 cm TAD CI 0.78 (0.70 - 0.86) AC 13.2 cm 18w3d (29u8q-23t7c) Hadl AC 46% FL 2.9 cm 18w4d (38g2q-20t5m) Hadl FL 50% HL 2.7 cm 18w4d (58k2y-34j8w) Pa HL 51% GA for sonogram 18w3d (96y1c-71q2v) Weight Estimate: based on (BPD,HC,AC,FL) Hadlock Weight: 254 gm (217-291) Hadlock : 0lbs, 8oz Cervical Length: 5.2 cm Heart Rate: 147 bpm MATERNAL ANATOMY Ovaries LxHxW (cm) Right 2.4 x 2.0 x 1.8 Vol: 4.5cc Left 2.9 x 1.8 x 2.1 Vol: 5.7cc CLINICAL SUMMARY Type of Gestation: Langley Intrauterine in variable presentation. size is appropriate for gestational age. growth: Consistent withnormal growth motion and organs seen: heart motion seen somatic activity observed body and limb movements seen Four chamber heart observed [facility] NAME: JOSE WASHBURN Radiology Department PHYS: MARCELO. - Donna Rico MD [address] : 1985 AGE: 33 SEX: [place], [place] [address] LOC: [facility] PHONE #: [phone] EXAM DATE: 08/25/2018 STATUS: REG CLI FAX #: [phone] RAD NO: Page 1 Signed Report (CONTINUED) Patient Name: JOSE WASHBURN Unit No: [id number] EXAMS: CPT CODE: [id number] US PREG AFTER 1ST TRI 56328 (Continued) Left ventricular outflow tract (LVOT) seen Right ventricular outflow tract (RVOT) seen Regular cardiac rhythm observed Normal intracranial anatomy seen Umbilical cord insertionin fetus seen stomach, Renal Fossa, Bladder and Spine seen Three vessel umbilical cord noted Choroid plexus cysts are noted abnormalities observed: BILATERAL PELVIECTASIS (4MM) NOTED.Placental location: Posterior Placental maturity : Grade 1 There is no evidence of placenta previa. Amniotic fluid volume is normal. Uterus and adnexa: No significant abnormality is seen. RECOMMEND FOLLOW UP AT 32-34 WEEKS FOR KIDNEYS. Thank you for allowing us to participate in the care of thispatient. Delmis Lcokhart M.D. Electronic Signature 08/25/2018 09:51am at 0951 Reported and signed by: Rosemary Lockhart MD CC: Technologist: Rolanda Soler RDMS, RVT Probe: Trnscrbd D/ (0951) Erica OrigPrint D/T: S: 08/25/2018 (0951) [facility] NAME: JOSE WASHBURN Kamryn GUERRA Radiology Department PHYS: Donna Cazares MD [address] : 1985 AGE: 33 SEX: F [place] [id number] LOC: F.RAD PHONE #: [phone] EXAM DATE: 08/25/2018 STATUS: REG [place] #: [phone] RAD NO: Page 2 Signed Report Patient Name: JOSE WASHBURN Kamryn ALVAREZT Unit No: [id number] EXAMS: CPT CODE: [id number] US PREG AFTER 1ST TRI [id number] (Continued) [facility] NAME: WUJOSE GUERRA Radiology Department PHYS: Donna Cazares MD [address] : 1985 AGE: 33 SEX: F [place] [address] LOC: F.RAD PHONE #: [phone] EXAM DATE: 08/25/2018 STATUS: REG CLI FAX #: [phone] RAD NO: Page 3 Signed Report
[2023-02-16 11:27] LABS: Specific Gravity 1.008 (1.005-1.030); Urine Bilirubin NEGATIVE (Negative); Urine Blood Negative (Negative); Urine Clarity Clear (Clear); Urine Color Colorless (Yellow); Urine Glucose NEGATIVE (Negative); Urine Protein NEGATIVE (Negative); Urine Urobilinogen Normal (Normal)
[2023-02-16 11:28] LABS: Absolute Lymphocytes (CBC) 1.6 K/uL (0.7-4.9); Hematocrit 34.8 % (36.0-45.0); Lymphocytes % 34.8 % (15.3-44.8); MCV 87.9 fL (80-100); MPV 9.6 fL (7.6-11.3); Platelets 192 thou/uL (152-406); RBC Red Blood Cell Count 3.96 M/uL (3.86-4.86)
[2023-02-16 11:32] LABS: Protime INR 1.02
--- NOTE | 2023-02-16 11:34 | RAD REPORT ---
EXAM DESCRIPTION: CT - Chest For Pe Angio - 02/16/2023 11:17 am CLINICAL HISTORY: Chest pain COMPARISON: None. TECHNIQUE: Dynamically enhanced axial 3 mm thick images of the chest were obtained during administra tion of 100 mL Isovue 370 IV contrast. Coronal and oblique reconstruction images were generated and r eviewed. Exam utilizes a protocol for optimal evaluation of pulmonary arterial tree. Maximum intensity projections 3D imaging was utilized All CT scans are performed using dose optimization technique as appropriate and may include automated exposure control or mA/KV adjustment according to patient size. FINDINGS: A pulmonary embolus is not seen. A thoracic aortic aneurysm is not noted. A pleural effusion is not seen. A pericardial effusion is not seen. A lung consolidation is not present. IMPRESSION: Negative for a pulmonary embolism.
[2023-02-16 11:38] LABS: Barbiturates NEGATIVE (NEGATIVE); Benzodiazepines NEGATIVE (NEGATIVE); Cocaine NEGATIVE (NEGATIVE); METHAMPHETAM NEGATIVE (NEGATIVE); Methadone NEGATIVE (NEGATIVE); Opiates NEGATIVE (NEGATIVE); Phencyclidine NEGATIVE (NEGATIVE); THC Cannibis NEGATIVE (NEGATIVE)
[2023-02-16] MEDS ORDERED: NA CHLORIDE 0.9% 1,000 ML ONE ×2 (11:42→13:49)
[2023-02-16 11:43] LABS: Bilirubin Direct 0.2 mg/dL (0-0.2); Bilirubin Indirect, Calculated 0.4 mg/dL (0.2-0.8); Bilirubin Total 0.6 mg/dL (0.2-1.0); Magnesium 2.1 mg/dL (1.6-2.4); Potassium 3.8 mEq/L (3.5-5.1); Troponin High Sensitivity 9.8 pg/mL (<58.9)
--- NOTE | 2023-02-16 12:05 | RAD REPORT ---
EXAM DESCRIPTION: CT - Abdomen Pelvis W Contrast - 02/16/2023 11:17 am CLINICAL HISTORY: Abdominal pain COMPARISON: none. TECHNIQUE: Computed axial tomography of the abdomen pelvis was obtained. 100 cc Isovue-300 was admin istered intravenously. Oral contrast was not requested which limits evaluation of bowel and appendix All CT scans are performed using dose optimization technique as appropriate and may include automated exposure control or mA/KV adjustment according to patient size. FINDINGS: The liver, spleen, pancreas, adrenal and kidneys appear unremarkable. There is no evidence of diverticulitis. Hysterectomy. Prominent soft tissue within the region of the vaginal cuff IMPRESSION: Prominent soft tissue within the region of the vaginal cuff probably with not significan t. If the patient has clinical symptoms to suggest pathology including abnormal vaginal bleeding then endovaginal sonogram would be recommended
--- NOTE | 2023-02-16 12:06 | RAD REPORT ---
EXAM DESCRIPTION: Phuc Single View02/16/2023 11:34 am CLINICAL HISTORY: Chest pain COMPARISON: none FINDINGS: The lungs appear clear of acute infiltrate. The heart is normal size IMPRESSION: No acute abnormalities displayed
--- NOTE | 2023-02-16 13:19 | EDPHYS ---
Physician Documentation [facility] Name: Dharmesh Riddle Age: 37 yrs Sex: Female : 1985 Arrival Date: 02/16/2023 Time: 10:31 Bed 16 Private MD: ED Physician Jones Helms HPI: 02/16 11:48 This 37 yrs old Female presents to ER via Ambulatory with complaints of Chest santy Pain. 11:48 The patient or guardian reports chest pain that is located primarily in the anterior santy chest wall. The pain does not radiate. Associated signs and symptoms: The patient has no apparent associated signs or symptoms. The chest pain is described as squeezing. Duration: The patient or guardian reports multiple episodes, that have now resolved. Modifying factors: The symptoms are alleviated by nothing. the symptoms are aggravated by nothing. Severity of pain: At its worst the pain was mild in the emergency department the pain has resolved and did so just prior to arrival. The patient has not experienced similar symptoms in the past. Historical: - Allergies: 10:43 NKDA; mb9 - Home Meds: 10:43 Iron supplements [Active]; mb9 - PMHx: 10:43 GERD; Anemia; Blood transfusions; mb9 - PSHx: 10:43 Total abdominal hysterectomy; mb9 - Immunization history:: Adult Immunizations up to date. - Social history:: Smoking status: Patient denies any tobacco usage or history of. ROS: 11:50 Constitutional: Negative for fever, chills, and weight loss, Eyes: Negative for injury, santy pain, redness, and discharge, ENT: Negative for injury, pain, and discharge, Neck: Negative for injury, pain, and swelling, Respiratory: Negative for shortness of breath, cough, wheezing, and pleuritic chest pain, Back: Negative for injury and pain, : Negative for injury, bleeding, discharge, and swelling, MS/Extremity: Negative for injury and deformity, Skin: Negative for injury, rash, and discoloration, Neuro: Negative for headache, weakness, numbness, tingling, and seizure, Psych: Negative for depression, anxiety, suicide ideation, homicidal ideation, and hallucinations, Allergy/Immunology: Negative for hives, rash, and allergies, Endocrine: Negative for neck swelling, polydipsia, polyuria, polyphagia, and marked weight changes, Hematologic/Lymphatic: Negative for swollen nodes, abnormal bleeding, and unusual bruising, 11:50 Cardiovascular: Positive for chest pain, of the chest, 11:50 Abdomen/GI: Positive for rectal bleeding, Exam: 11:50 Constitutional: This is a well developed, well nourished patient who is awake, alert, santy and in no acute distress. Head/Face: Normocephalic, atraumatic. Eyes: Pupils equal round and reactive to light, extra-ocular motions intact. Lids and lashes normal. Conjunctiva and sclera are non-icteric and not injected. Cornea within normal limits. Periorbital areas with no swelling, redness, or edema. ENT: Nares patent. No nasal discharge, no septal abnormalities noted. Tympanic membranes are normal and external auditory canals are clear. Oropharynx with no redness, swelling, or masses, exudates, or evidence of obstruction, uvula midline. Mucous membranes moist. Neck: Trachea midline, no thyromegaly or masses palpated, and no cervical lymphadenopathy. Supple, full range of motion without nuchal rigidity, or vertebral point tenderness. No Meningismus. Chest/axilla: Normal chest wall appearance and motion. Nontender with no deformity. No lesions are appreciated. Cardiovascular: Regular rate and rhythm with a normal S1 and S2. No gallops, murmurs, or rubs. Normal PMI, no JVD. No pulse deficits. Respiratory: Lungs have equal breath sounds bilaterally, clear to auscultation and percussion. No rales, rhonchi or wheezes noted. No increased work of breathing, no retractions or nasal flaring. Abdomen/GI: Soft, non-tender, with normal bowel sounds. No distension or tympany. No guarding or rebound. No evidence of tenderness throughout. Back: No spinal tenderness. No costovertebral tenderness. Full range of motion. Skin: Warm, dry with normal turgor. Normal color with no rashes, no lesions, and no evidence of cellulitis. MS/ Extremity: Pulses equal, no cyanosis. Neurovascular intact. Full, normal range of motion. Neuro: Awake and alert, GCS 15, oriented to person, place, time, and situation. Cranial nerves II-XII grossly intact. Motor strength 5/5 in all extremities. Sensory grossly intact. Cerebellar exam normal. Normal gait. Psych: Awake, alert, with orientation to person, place and time. Behavior, mood, and affect are within normal limits. 11:50 ECG was reviewed by the Attending Physician. 11:53 Musculoskeletal/extremity: DVT Exam: No signs of deep vein thrombosis. no pain, no santy swelling, no tenderness, negative Homans' sign noted on exam, no appreciated bluish discoloration, no erythema, no increased warmth, Vital Signs: 10:41 BP 137 / 96; Pulse 81; Resp 18; Temp 98.1; Pulse Ox 100% on R/A; Weight 71.21 kg; mb9 Height 5 ft. 7 in. ; Pain 9/10; 11:00 BP 118 / 81; Pulse 68; Resp 20; Pulse Ox 100% on R/A; db 14:16 BP 103 / 67; Pulse 78; Resp 16; Pulse Ox 98% on R/A; iw 10:41 Body Mass Index 24.59 (71.21 kg, 170.18 cm) mb9 10:41 Pain Scale: Adult mb9 MDM: 10:35 Patient medically screened. santy 11:53 Differential diagnosis: abnormal EKG, acute myocardial infarction, acute pericarditis, santy chest wall pain, costochondritis, gastritis, diverticulitis, hemorrhoids, gastritis, pulmonary embolus, stable angina, unstable angina. HEART Score: History: Slightly Suspicious (0), ECG: Normal (0), Age: < or = 45 years (0), Risk Factors: No Risk Factors Known (0), Troponin: < or = 1 x Normal Limit (0), Total Score = 0. MC Risk Score: TOTAL SCORE = 0. Data reviewed: vital signs, nurses notes, lab test result(s), EKG, radiologic studies, CT scan, plain films. Consideration of Admission/Observation Escalation of care including admission/observation considered. I considered the following discharge prescriptions or medication management in the emergency department Medications were administered in the Emergency Department. See MAR. Independent interpretation of the following test(s) in the Emergency Department EKG: See my EKG interpretation above. 11:54 Counseling: I had a detailed discussion with the patient and/or guardian regarding the sanyt historical points, exam findings, and any diagnostic results supporting the discharge/admit diagnosis, lab results, radiology results, the need for outpatient follow up, for definitive care, a fuel pilot engineer, a family practitioner, a jewel hole finish opener. 02/16 10:36 Order name: Basic Metabolic Panel; Complete Time: 11:47 [facility] 02/16 10:36 Order name: CBC with Diff; Complete Time: 11:55 [facility] 02/16 10:36 Order name: LFT's; Complete Time: 11:47 [facility] 02/16 10:36 Order name: Magnesium; Complete Time: 11:47 [facility] 02/16 10:36 Order name: NT PRO-BNP; Complete Time: 11:47 [facility] 02/16 10:36 Order name: PT-INR; Complete Time: 11:47 [facility] 02/16 10:36 Order name: Troponin HS; Complete Time: 11:47 [facility] 02/16 10:36 Order name: Lipase; Complete Time: 11:47 [facility] 02/16 10:36 Order name: D-Dimer; Complete Time: 11:47 [facility] 02/16 10:36 Order name: Urinalysis w/ reflexes; Complete Time: 11:47 [facility] 02/16 10:36 Order name: PREGU; Complete Time: 11:47 [facility] 02/16 10:36 Order name: UDS; Complete Time: 11:47 [facility] 02/16 13:25 Order name: Troponin HS: now, when negative dc 02/16 10:36 Order name: XRAY Chest (1 view); Complete Time: 13:22 [facility] 02/16 11:00 Order name: CT Chest For PE Angio; Complete Time: 11:47 [facility] 02/16 11:00 Order name: CT Abd/Pelvis - IV Contrast Only; Complete Time: 13:22 [facility] 02/16 12:33 Order name: US Transvaginal Study (Probe) 02/16 10:36 Order name: EKG; Complete Time: 10:37 [facility] 02/16 10:36 Order name: Cardiac monitoring; Complete Time: 10:57 [facility] 02/16 10:36 Order name: EKG - Nurse/Tech; Complete Time: 10:57 [facility] 02/16 10:36 Order name: IV Saline Lock; Complete Time: 11:14 [facility] 02/16 10:36 Order name: Labs collected and sent; Complete Time: 11:14 [facility] 02/16 10:36 Order name: O2 Per Protocol; Complete Time: 11:15 [facility] 02/16 10:36 Order name: O2 Sat Monitoring; Complete Time: 11:14 [facility] EC:50 Rate is 69 beats/min. Rhythm is regular. QRS [place] is Normal. TN interval is shortened santy at 104 msec. QRS interval is normal. QT interval is normal. No Q waves. T waves are Normal. No ST changes noted. Clinical impression: NSR w/ Non-specific ST/T Changes and No evidence of ischemia. Interpreted by me. Reviewed by me. Administered Medications: 11:00 CANCELLED (Duplicate Order): aspirinchewable tablet 81 mg PO once santy 11:20 Drug: NS 0.9% IV 1000 ml IV at 1 bolus Per protocol; 1000 mL bolus Route: IV; Rate: 1 db bolus; Site: left antecubital; 13:15 Drug: NS 0.9% IV 1000 ml IV at 1 bolus Per protocol; 1000 mL bolus Route: IV; Rate: 1 db bolus; Site: left antecubital; Disposition Summary: 02/16/23 13:18 Discharge Ordered Notes: Location: Home santy Problem: new santy Symptoms: have improved santy Condition: Stable santy Diagnosis - Chest pain, unspecified santy - GI Bleed/ Gastrointestinal hemorrhage, unspecified - lower, stable santy Followup: santy - With: Private Physician - When: 2 - 3 days - Reason: Recheck today's complaints, Continuance of care, Re-evaluation by your physician Followup: santy - With: Javier Shannon MD - When: 2 - 3 days - Reason: Recheck today's complaints, Re-evaluation by your physician Followup: santy - With: Chele Pollard MD - When: 2 - 3 days - Reason: Recheck today's complaints, Re-evaluation by your physician Followup: santy - With: Yoly Zarate MD - When: 2 - 3 days - Reason: Recheck today's complaints, Continuance of care, Re-evaluation by your physician Discharge Instructions: - Discharge Summary Sheet santy - Nonspecific Chest Pain, Adult santy - Rectal Bleeding santy - Nonspecific Chest Pain, Adult, [id number] santy - Aspirin and Your Heart santy - Rectal Bleeding, [id number] santy - Lower Gastrointestinal Bleeding santy Forms: - Medication Reconciliation Form santy - Thank You Letter santy - Antibiotic Education santy - Prescription Opioid Use santy - Patient Portal Instructions santy - Leadership Thank You Letter santy Prescriptions: - Protonix 40 mg Oral Tablet - take 1 tablet ORAL route once daily; 30 tablet; Refills: 0, Product Selection santy Permitted - Cipro 500 mg Oral Tablet - take 1 tablet ORAL route every 12 hours for 7 days; 14 tablet; Refills: 0, santy Product Selection Permitted Signatures: Dispatcher [employer] Jones Mcdonough MD MD cha Benton, Danielle RN RN db Margo Rose RN RN mb9 Corrections: (The following items were deleted from the chart) 11:00 10:36 Aspirin PO Chewable Tablet 81 mg PO once ordered. santy madera
--- NOTE | 2023-02-16 13:19 | ER ---
Nurse's Notes [facility] Name: Dharmesh Riddle Age: 37 yrs Sex: Female : 1985 Arrival Date: 02/16/2023 Time: 10:31 Bed 16 Private MD: Diagnosis: Chest pain, unspecified;GI Bleed/ Gastrointestinal hemorrhage, unspecified-lower, stable Presentation: 02/16 10:41 Chief complaint: Patient states: "I woke up this morning with chest pain and a cold mb9 sweat. It comes and goes but feels like a dull pain. I tried to go to the bathroom and dark red blood came out of my rectum.". Coronavirus screen: At this time, the client does not indicate any symptoms associated with coronavirus-19. Ebola Screen: No symptoms or risks identified at this time. Initial Sepsis Screen: Does the patient meet any 2 criteria? No. Patient's initial sepsis screen is negative. Does the patient have a suspected source of infection? No. Patient's initial sepsis screen is negative. Risk Assessment: Do you want to hurt yourself or someone else? Patient reports no desire to harm self or others. Onset of symptoms was February 16, 2023. 10:41 Method Of Arrival: Ambulatory mb9 10:41 Acuity: ANGELICA 3 mb9 Triage Assessment: 10:44 General: Appears in no apparent distress. Behavior is calm, cooperative. Pain: mb9 Complains of pain in chest. EENT: No signs and/or symptoms were reported regarding the EENT system. Neuro: Nicholas Agitation-Sedation Scale (RASS): 0 - Alert and Calm Level of Consciousness is awake, alert, obeys commands, Oriented to person, place, time, situation, Appropriate for age Reports fatigue. Cardiovascular: Reports chest pain. Respiratory: Airway is patent Respiratory effort is even, unlabored, Respiratory pattern is regular, symmetrical. GI: Reports bloody stool, blood stool that is dark red. Derm: Skin is pink, warm \\T\\ dry. Musculoskeletal: Range of motion: intact in all extremities. Historical: - Allergies: 10:43 NKDA; mb9 - Home Meds: 10:43 Iron supplements [Active]; mb9 - PMHx: 10:43 GERD; Anemia; Blood transfusions; mb9 - PSHx: 10:43 Total abdominal hysterectomy; mb9 - Immunization history:: Adult Immunizations up to date. - Social history:: Smoking status: Patient denies any tobacco usage or history of. Screenin:[facility] ED Fall Risk Assessment (Adult) History of falling in the last 3 months, db including since admission No falls in past 3 months (0 pts) Confusion or Disorientation No (0 pts) Intoxicated or Sedated No (0 pts) Impaired Gait No (0 pts) Mobility Assist Device Used No (0 pt) Altered Elimination No (0 pt) Score/Fall Risk Level 0 - 2 = Low Risk Oriented to surroundings, Maintained a safe environment. Abuse screen: Denies threats or abuse. Denies injuries from another. Nutritional screening: No deficits noted. Tuberculosis screening: No symptoms or risk factors identified. Assessment: 11:16 Reassessment: PATIENT IS IN CT. db 11:36 Reassessment: Patient appears in no apparent distress at this time. Patient and/or db family updated on plan of care and expected duration. Pain level reassessed. Patient is alert, oriented x 3, equal unlabored respirations, skin warm/dry/pink. General: Appears in no apparent distress. comfortable, Behavior is calm, cooperative. Pain: Complains of pain in chest Pain does not radiate. Pain began suddenly. Neuro: Level of Consciousness is awake, alert, obeys commands, Oriented to person, place, time, situation, Moves all extremities. Full function Speech is normal. Cardiovascular: Reports chest pain, Capillary refill < 3 seconds Patient's skin is warm and dry. Respiratory: Airway is patent Respiratory effort is even, unlabored, Respiratory pattern is regular, symmetrical. 14:16 Reassessment: Patient appears in no apparent distress at this time. Patient and/or iw family updated on plan of care and expected duration. Pain level reassessed. Patient is alert, oriented x 3, equal unlabored respirations, skin warm/dry/pink. Patient states feeling better. Patient states symptoms have improved. Vital Signs: 10:41 BP 137 / 96; Pulse 81; Resp 18; Temp 98.1; Pulse Ox 100% on R/A; Weight 71.21 kg; mb9 Height 5 ft. 7 in. ; Pain 9/10; 11:00 BP 118 / 81; Pulse 68; Resp 20; Pulse Ox 100% on R/A; db 14:16 BP 103 / 67; Pulse 78; Resp 16; Pulse Ox 98% on R/A; iw 10:41 Body Mass Index 24.59 (71.21 kg, 170.18 cm) mb9 10:41 Pain Scale: Adult mb9 ED Course: 10:34 Patient arrived in ED. im 10:35 Jones Helms MD is Attending Physician. santy 10:43 Triage completed. mb9 10:44 Arm band placed on. mb9 10:57 Placed in gown. Bed in low position. Call light in reach. Side rails up X 1. Client mb9 placed on continuous cardiac and pulse oximetry monitoring. NIBP monitoring applied. media monitor on. 10:57 EKG done, by ED staff, reviewed by Jones Helms MD. mb9 11:05 Inserted saline lock: 20 gauge in left antecubital area, using aseptic technique. Blood tl4 collected. 11:14 UDS Sent. tl4 11:14 PREGU Sent. tl4 11:14 Urinalysis w/ reflexes Sent. tl4 11:14 D-Dimer Sent. tl4 11:14 Lipase Sent. tl4 11:14 Basic Metabolic Panel Sent. tl4 11:15 CBC with Diff Sent. tl4 11:15 LFT's Sent. tl4 11:15 Magnesium Sent. tl4 11:15 NT PRO-BNP Sent. tl4 11:15 PT-INR Sent. tl4 11:15 Troponin HS Sent. tl4 11:16 Andie Irizarry, RN is Primary Nurse. db 11:19 CT Chest For PE Angio In Process Unspecified. EDMS 11:19 CT Abd/Pelvis - IV Contrast Only In Process Unspecified. EDMS 11:36 XRAY Chest (1 view) In Process Unspecified. EDMS 11:37 Patient maintains SpO2 saturation greater than 95% on room air. db 13:18 US Transvaginal Study (Probe) In Process Unspecified. EDMS 13:18 Javier Shannon MD is Referral Physician. santy 13:18 Chele Pollard MD is Referral Physician. santy 13:20 Yoly Zarate MD is Referral Physician. santy 14:16 Provided Education on: . iw 14:16 No provider procedures requiring assistance completed. IV discontinued, intact, iw bleeding controlled, No redness/swelling at site. Pressure dressing applied. Administered Medications: 11:00 CANCELLED (Duplicate Order): aspirinchewable tablet 81 mg PO once santy 11:20 Drug: NS 0.9% IV 1000 ml IV at 1 bolus Per protocol; 1000 mL bolus Route: IV; Rate: 1 db bolus; Site: left antecubital; 13:15 Drug: NS 0.9% IV 1000 ml IV at 1 bolus Per protocol; 1000 mL bolus Route: IV; Rate: 1 db bolus; Site: left antecubital; Medication: 14:19 VIS not applicable for this client. iw Outcome: 13:18 Discharge ordered by . santy 14:19 Discharged to home ambulatory, iw 14:19 Condition: good 14:19 Discharge instructions given to patient, Instructed on discharge instructions, follow up and referral plans. Demonstrated understanding of instructions, follow-up care, 14:19 Patient left the ED. iw Signatures: Dispatcher [employer] Jones Mcdonough MD MD cha Williams, Irene RN YESENIA iw Andie Irizarry RN Margo Brown RN RN mb9 Bonnie Ceja Toni 4
--- NOTE | 2023-02-16 13:47 | RAD REPORT ---
EXAM DESCRIPTION: US - Transvaginal Study Probe - 02/16/2023 1:16 pm CLINICAL HISTORY: vag cuff thickened Pelvic pain. COMPARISON: Abdomen Pelvis W Contrast dated 02/16/2023 FINDINGS: The uterus appears absent. Visualized aspects of the vaginal cuff along the midline shows no mass or other abnormality. Neither ovary well seen due to bowel gas shadowing. No adnexal masses. No significant pelvic ascites. IMPRESSION: Negative study.
[2023-02-16 14:33] VITALS: TEMP 98.1
[2023-02-16 14:44] VITALS: BP 103/67; O2SAT 98
--- NOTE | 2023-02-18 16:57 | EKG ---
Test Date: 2023-02-16 Test Time: 10:54:34 Boat Washer: MB MEASUREMENT RESULTS: Intervals: Rate: 69 OR: 104 QRSD: 86 QT: 412 QTc: 441 [place]: P: 54 OR: 104 QRS: 74 T: 38 INTERPRETIVE STATEMENTS: Sinus rhythm with short OR Otherwise normal ECG No previous ECG available for comparison Electronically Signed On 02-18-23 16:52:13 SALES/MARKETING by Chele Pollard
== END 2023-02-16 14:19 | disposition home or self-care (01) ==
LOC: ER 10:31
DX: R07.89 Other chest pain (principal); K92.2 Gastrointestinal hemorrhage, unspecified
CPT/HCPCS: 93005; 85025; 80048; 36415; 83735; 81025; 85610; 85379; 80076; 81003; 84484 ×2; 83690; 83880; 80307; 71275; 74177; 71045; 76830; 99285; Q9967; J7030 ×2